=== PATIENT | male | born 1980 | race Caucasian/White ===

== ENCOUNTER 2017-12-29 09:12 | Inpatient (IN) | payer MEDICAID ==
[~2017-12-29] VITALS: Ht 170.2 cm; Wt 101.6 kg
[2017-12-29 09:19] VITALS: Ht 170.2 cm; Wt 101.6 kg
[2017-12-29 10:22] LABS: BASOPHIL % 0.6 % (0-2); PLATELET COUNT 246 x10^3mcL (130-400); RED CELL DISTRIBUTION WIDTH 13.8 % (11.5-14.5)
[2017-12-29 10:28] LABS: CALCIUM 9.2 mg/dL (8.5-10.1); CHLORIDE SERUM 103 mmol/L (98-107); CREATININE SERUM 0.8 mg/dL (0.7-1.3); GFR1 > 60 mL/min; GLUCOSE SERUM 105 mg/dL (74-106); POTASSIUM SERUM 3.5 mmol/L (3.5-5.1); SODIUM SERUM 142 mmol/L (136-145)
[2017-12-29 10:33] LABS: ALBUMIN 4.3 g/dL (3.4-5.0); ALKALINE PHOSPHATASE 111 U/L (46-116); ALT/SGPT 264 U/L (16-63); AST/SGOT 277 U/L (15-37)
[2017-12-29 10:39] LABS: TOTAL PROTEIN, SERUM 8.9 g/dL (6.4-8.2)
[2017-12-29] MEDS ORDERED: GOOD NEIGHBOR P20 M2 PO (11:05)
[2017-12-29 12:18] VITALS: BP 140/82
[2017-12-29 13:29] LABS: MAGNESIUM 1.6 mg/dL (1.8-2.4)
[2017-12-29 13:34] LABS: T3 TOTAL 1.25 ng/mL
[2017-12-29 13:35] LABS: CHOLESTEROL/HDL RATIO 3.9
[2017-12-29 13:39] LABS: FREE T4 0.94 ng/dL (0.76-1.46); FREE THYROXINE INDEX 2.7 ug/dL (1.4-4.5); T4(THYROXINE) 7.4 ug/dL (4.7-13.3)
[2017-12-29 15:21] LABS: UA SPECIFIC GRAVITY >=1.030 (1.005-1.035); microscopic required? YES; urine erythrocyte NEGATIVE (NEGATIVE)
[2017-12-29 15:28] LABS: AMPHETAMINE QUAL UR NONE DETECTED (NEG <=1000)
[2017-12-29 16:44] VITALS: BP 146/82
[2017-12-29 21:11] VITALS: BP 132/83
[2017-12-30 05:24] VITALS: BP 136/84
[2017-12-30 06:34] LABS: CARBON DIOXIDE 27.4 mmol/L (21-32); CHLORIDE SERUM 100 mmol/L (98-107); CREATININE SERUM 0.8 mg/dL (0.7-1.3); GFR1 > 60 mL/min; GLUCOSE SERUM 98 mg/dL (74-106); MAGNESIUM 1.7 mg/dL (1.8-2.4); PHOSPHOROUS 2.6 mg/dL (2.5-4.9); POTASSIUM SERUM 3.3 mmol/L (3.5-5.1); SODIUM SERUM 137 mmol/L (136-145)
[2017-12-30 06:41] LABS: BASOPHIL % 0.5 % (0-2); PLATELET COUNT 224 x10^3mcL (130-400); RED CELL DISTRIBUTION WIDTH 13.1 % (11.5-14.5)
[2017-12-30] MEDS ORDERED: LIPI10 PO (07:40)
[2017-12-30 09:57] VITALS: BP 141/91
== END 2017-12-30 10:40 | disposition home or self-care (01) | DRG 243 ==
LOC: ED 09:12 → DU 11:09
PROVIDERS: Emergency Medicine; Family Medicine
DX: K21.9 Gastro-esophageal reflux disease without esophagitis (principal); E83.42 Hypomagnesemia; K76.0 Fatty (change of) liver, not elsewhere classified; E83.39 Other disorders of phosphorus metabolism; K29.70 Gastritis, unspecified, without bleeding; E78.5 Hyperlipidemia, unspecified; R74.0 Nonspecific elevation of levels of transaminase and lactic acid dehydrogenase [LDH]; E66.9 Obesity, unspecified; F10.20 Alcohol dependence, uncomplicated; Z68.35 Body mass index [BMI] 35.0-35.9, adult
CPT/HCPCS: 83880; 84439; J2405; J3010; J3490; J7030; Q0092

== ENCOUNTER 2019-01-11 07:49 | Emergency (ER) | payer MEDICAID ==
[~2019-01-11] VITALS: Ht 170.2 cm; Wt 97.5 kg
[~2019-01-11 07:49] MED LIST: GOOD NEIGHBOR P20 M2 PO; LIPI10 PO
[2019-01-11 07:54] VITALS: Ht 170.2 cm; Wt 97.5 kg
[2019-01-11 08:21] LABS: BASOPHIL % 0.8 % (0-2); PLATELET COUNT 226 x10^3mcL (130-400); RED CELL DISTRIBUTION WIDTH 13.2 % (11.5-14.5)
[2019-01-11 08:39] LABS: CALCIUM 9.4 mg/dL (8.5-10.1); CARBON DIOXIDE 29.8 mmol/L (21-32); CHLORIDE SERUM 100 mmol/L (98-107); CREATININE SERUM 0.9 mg/dL (0.7-1.3); GFR1 > 60 mL/min; GLUCOSE SERUM 108 mg/dL (74-106); SODIUM SERUM 140 mmol/L (136-145)
[2019-01-11 08:43] LABS: ALBUMIN 3.8 g/dL (3.4-5.0); ALKALINE PHOSPHATASE 128 U/L (46-116); ALT/SGPT 158 U/L (16-63); AST/SGOT 346 U/L (15-37); BILIRUBIN TOTAL 1.31 mg/dL (0.20-1.00); LIPASE 169 IU/L (73-393); TOTAL PROTEIN, SERUM 8.2 g/dL (6.4-8.2)
[2019-01-11 09:06] LABS: AMPHETAMINE QUAL UR NONE DETECTED (See below)
[2019-01-11 11:20] VITALS: BP 133/70
== END 2019-01-11 11:20 | disposition home or self-care (01) ==
LOC: ED 07:49
PROVIDERS: Emergency Medicine
DX: K21.9 Gastro-esophageal reflux disease without esophagitis (principal); R07.89 Other chest pain; F10.20 Alcohol dependence, uncomplicated
CPT/HCPCS: G0480; J2405; J3490; J7030

== ENCOUNTER 2019-04-22 12:12 | Emergency (ER) | payer MEDICAID ==
[~2019-04-22] VITALS: Ht 172.7 cm; Wt 97.5 kg
[2019-04-22 14:14] VITALS: BP 131/87
== END 2019-04-22 14:14 | disposition home or self-care (01) ==
LOC: ED 12:12
DX: S05.01XA Injury of conjunctiva and corneal abrasion without foreign body, right eye, initial encounter (principal); K21.9 Gastro-esophageal reflux disease without esophagitis; W22.8XXA Striking against or struck by other objects, initial encounter; Y93.89 Activity, other specified; Y92.89 Other specified places as the place of occurrence of the external cause; Y99.0 Civilian activity done for income or pay
CPT/HCPCS: 90715

== ENCOUNTER 2019-07-19 10:47 | Emergency (ER) | payer MEDICAID ==
[~2019-07-19] VITALS: Ht 167.6 cm; Wt 89.5 kg
[2019-07-19 11:02] VITALS: Ht 167.6 cm; Wt 89.5 kg
[2019-07-19 12:33] LABS: BASOPHIL % 0.2 % (0-2); PLATELET COUNT 145 x10^3mcL (130-400); RED CELL DISTRIBUTION WIDTH 13.1 % (11.5-14.5)
[2019-07-19 12:43] LABS: CALCIUM 8.7 mg/dL (8.5-10.1); CHLORIDE SERUM 100 mmol/L (98-107); CREATININE SERUM 0.8 mg/dL (0.7-1.3); GFR1 > 60 mL/min; GLUCOSE SERUM 113 mg/dL (74-106); POTASSIUM SERUM 3.4 mmol/L (3.5-5.1); SODIUM SERUM 140 mmol/L (136-145)
[2019-07-19 12:47] LABS: ALBUMIN 3.7 g/dL (3.4-5.0); ALKALINE PHOSPHATASE 233 U/L (46-116); ALT/SGPT 144 U/L (16-63); AST/SGOT 557 U/L (15-37); BILIRUBIN TOTAL 2.9 mg/dL (0.20-1.00); LIPASE 243 IU/L (73-393); MAGNESIUM 1.3 mg/dL (1.8-2.4)
[2019-07-19 13:07] LABS: TOTAL PROTEIN, SERUM 8.5 g/dL (6.4-8.2)
[2019-07-19 18:31] VITALS: BP 123/73
== END 2019-07-19 18:31 | disposition home or self-care (01) ==
LOC: ED 10:47
PROVIDERS: Emergency Medicine
DX: K80.50 Calculus of bile duct without cholangitis or cholecystitis without obstruction (principal); R74.0 Nonspecific elevation of levels of transaminase and lactic acid dehydrogenase [LDH]; F10.239 Alcohol dependence with withdrawal, unspecified; K21.9 Gastro-esophageal reflux disease without esophagitis
CPT/HCPCS: G0480; J2060; J2405; J7030; Q0092

== ENCOUNTER 2019-12-05 08:57 | Inpatient (IN) | payer MEDICAID ==
[~2019-12-05] VITALS: Ht 162.6 cm; Wt 94.9 kg
[2019-12-05 08:59] VITALS: Ht 162.6 cm; Wt 94.9 kg
[2019-12-05 09:29] LABS: BASOPHIL % 1.6 % (0-2); PLATELET COUNT 179 x10^3mcL (130-400); RED CELL DISTRIBUTION WIDTH 15.6 % (11.5-14.5)
[2019-12-05 09:32] LABS: CALCIUM 9.3 mg/dL (8.5-10.1); CARBON DIOXIDE 29.1 mmol/L (21-32); CHLORIDE SERUM 99 mmol/L (98-107); CREATININE SERUM 0.9 mg/dL (0.7-1.3); GFR1 > 60 mL/min; GLUCOSE SERUM 120 mg/dL (74-106); POTASSIUM SERUM 3.3 mmol/L (3.5-5.1); SODIUM SERUM 137 mmol/L (136-145)
[2019-12-05 09:42] LABS: ALBUMIN 3.4 g/dL (3.4-5.0); ALKALINE PHOSPHATASE 216 U/L (46-116); ALT/SGPT 66 U/L (16-63); AST/SGOT 236 U/L (15-37); BILIRUBIN TOTAL 6.84 mg/dL (0.20-1.00)
[2019-12-05 09:46] LABS: TOTAL PROTEIN, SERUM 8.7 g/dL (6.4-8.2)
[2019-12-05 09:46] LABS: UA SPECIFIC GRAVITY 1.025 (1.005-1.035); microscopic required? YES; urine erythrocyte NEGATIVE (NEGATIVE)
--- NOTE | 2019-12-05 09:46 | NUR ---
PT COMES TO ER WITH C/O CHEST PAIN/DIZZINES ASSOCIATED WITH NAUSEA/VOMITING SINCE YESTERDAY. REPORTS HIS CHEST PAIN HAS BEEN DAILY FOR THE LAST 7 YEARS. PT ADMITS TO BEING AN ALCOHOLIC WITH DAILY DRINKING FORMANY YEARS. REPORTS GENERAL MALAISE, NAUSEA, VOMITING X 3 YESTERDAY-WHITE/YELLOW FLUIDS AND RT UPPER QUAD PAIN. SCLERA IS YELLOW IN COLOR AND URINE COLLECTED WAS TEA COLORED. DENIES DYSURIA, FEVERS/CHILLS. RESP EVEN AND UNLABORED,IN NAD. IV EUGENIO ESTABLISHED, IV FLUIDS STARTED.
--- NOTE | 2019-12-05 11:13 | NUR ---
NO ACUTE CHNAGES IN CONDITION. IV FLUIDS INFUSED WELL, WAIITNG FOR LAB TESTS RESULTS.
--- NOTE | 2019-12-05 11:44 | NUR ---
PT REPORTS INCREASED DIZZINESS, INFORMED TO CALL NURSE FOR ASSISTANCE, VSS. CALL LIGHT WITHIN REACH.
[2019-12-05 12:55] LABS: MAGNESIUM 2.1 mg/dL (1.8-2.4); PHOSPHOROUS 2.9 mg/dL (2.5-4.9)
[2019-12-05 12:56] LABS: CHOLESTEROL 301 mg/dL (<200); CHOLESTEROL/HDL RATIO 25.1; HDL CHOLESTEROL 12 mg/dL (40-60); TRIGLYCERIDES 408 mg/dL (<150)
--- NOTE | 2019-12-05 13:00 | NUR ---
REPORT CALLED TO PRIMARY RN, UPDATED ON STATUS,ALBS AND VITALS. PT STABLE FOR TRANSFER. VSS, ALL BELONGINGS WITH PT.
--- NOTE | 2019-12-05 13:30 | NUR ---
RECEIVED PT WITH CC ABDOMINAL PAIN RADIATING TO LEFT CHEST AND VOMITING X4. PT WITH HX OF ETOH, STATED HE USUALLY DRINKS 4 CANS OF MODELO DAILY, RECENTLY QUIT AROUND NOVEMBER 29, 2019. PT IS AAOX4. ICTERIC SCLERA NOTED TO BILATERAL EYES, PT STATED IT STARTED 3 DAYS AGO. RESP EVEN AND UNLABORED ON RA. DENIES CP OR PRESSURE. DENIES N/V AT THIS TIME. BOWEL SOUNDS ACTIVE, ABD SOFT, ROUND. LAST BM 12/05/18, FORMED. VOIDING FREELY. IV TO RAC, NO REDNESS OR SWELLING NOTED. AMBULATORY. ORIENTED TO ROOM AND SURROUNDINGS. BED IN LOW POSITION, CALL LIGHT WITHIN REACH. ENDORSED CARE TO PRIMARY RN FREEMAN.
[2019-12-05 13:39] VITALS: BP 130/75
--- NOTE | 2019-12-05 15:01 | NUR ---
PT TAKEN DOWN FOR CT VIA WHEELCHAIR. PT IS S/L.
[2019-12-05 15:19] VITALS: BP 126/77
--- NOTE | 2019-12-05 18:34 | NUR ---
PT IS LAYING DOWN IN BED WITH HOB UP WATCHING TV. PT LOOKS TO BE IN NO ACUTE DISTRESS AT THIS TIME AND DENIES ANY PAIN. RESPIRATIONS EVEN AND UNLABORED ON ROOM AIR. IV SITE PATENT WITH NO SIGNS OF ERYTHEMA OR SWELLING WITH IV FLUIDS INFUSING. JAUNDICE NOTED TO B/L SCLERA. CALL LIGHT WITHIN REACH, BED IN LOWEST POSITION, WILL ENDORSE TO ONCOMING SHIFT.
[2019-12-05 19:22] VITALS: BP 120/79
--- NOTE | 2019-12-05 19:38 | NUR ---
AWAKE AND ALERT, WATCHING TV. BREATHING EVEN AND UNLABORED ON ROOM AIR. SINUS RHYTHM ON TELE. IVF OF NS INFUSING WELL AT 100ML/HR. CALL LIGHT WITHIN EASY REACH.
--- NOTE | 2019-12-05 22:38 | NUR ---
EYES CLOSED, BREATHING EVEN AND UNLABORED. SIDE RAILS PADDED, CALL LIGHT WITHIN EASY REACH.
--- NOTE | 2019-12-06 01:50 | NUR ---
EYES CLOSED, BREATHING EVEN AND UNLABORED. CALL LIGHT WITHIN EASY REACH.
[2019-12-06 05:52] VITALS: BP 120/78
--- NOTE | 2019-12-06 06:14 | NUR ---
AWAKE AND ALERT, STATED DID NOT PASS ANY STOOL DURING SHIFT. BREATHING EVEN AND UNLABORED ON ROOM AIR. DENIES HAVING NAUSEA.
[2019-12-06 07:03] LABS: BASOPHIL % 0.1 % (0-2); PLATELET COUNT 172 x10^3mcL (130-400)
[2019-12-06 07:05] LABS: RED CELL DISTRIBUTION WIDTH 15.5 % (11.5-14.5)
--- NOTE | 2019-12-06 07:05 | NUR ---
EYES CLOSED, BREATHING EVEN AND UNLABORED ON ROOM AIR. CALL LIGHT WITHIN EASY REACH. ENDORSED TO NURSE RUBA
--- NOTE | 2019-12-06 07:15 | NUR ---
REPORT TAKEN [facility] [employer] REPRESENTATIVE NURSE AT THE BEDSIDE, PATIENT RESTING AT THIS TIME WITH EYES CLOSED, CHEST RISE AND FALL OBSERVED, NO DISTRESS OBSERVED, WILL CONTINUE TO MONITOR.
[2019-12-06 07:24] LABS: CALCIUM 8.8 mg/dL (8.5-10.1); CARBON DIOXIDE 26.7 mmol/L (21-32); CHLORIDE SERUM 101 mmol/L (98-107); CREATININE SERUM 0.7 mg/dL (0.7-1.3); GFR1 > 60 mL/min; GLUCOSE SERUM 94 mg/dL (74-106); LIPASE 239 IU/L (73-393); POTASSIUM SERUM 3.5 mmol/L (3.5-5.1); SODIUM SERUM 134 mmol/L (136-145)
[2019-12-06 07:50] VITALS: BP 137/86
[2019-12-06 12:00] VITALS: BP 108/66
--- NOTE | 2019-12-06 13:00 | NUR ---
Discount pharmacy card and list to low cost medical clinics given to patient by Lenard Stallworth.
[2019-12-06 16:24] VITALS: BP 118/78
--- NOTE | 2019-12-06 19:10 | NUR ---
REPORT RECEIVED FROM DAY SHIFT RN. PATIENT WAS SEEN RESTING COMFORTABLY IN BED. NO DISTRESS NOTED. BREATHING EVEN AND UNLABORED ON ROOM AIR. SEIZURE PRECAUTIONS IN PLACE. DENIES CHEST PAIN/PRESSURE. NO C/O PAIN. IV TO THE RAC. INFUSING WELL. PATENT AND INTACT. NO REDNESS OR SWELLING NOTED. COMFORT AND SAFETY MEASURES IN PLACE. BED IS LOCKED AND IN THE LOWEST POSITION. SIDE RAILS UP X2. CALL LIGHT IS WITHIN REACH. WILL CONTINUE TO MONITOR.
--- NOTE | 2019-12-06 19:24 | NUR ---
REPORT GIVEN TO RADIOGRAPHER NURSE, CARE ENDORSED
[2019-12-06 20:57] VITALS: BP 109/71
--- NOTE | 2019-12-07 02:05 | NUR ---
RESTING IN BED WITH EYES CLOSED. NO DISTRESS NOTED. BREATHING EVEN AND UNLABORED ON ROOM AIR. NO SOB NOTED. NO S/S OF PAIN NOTED. SAFETY MEASURES IN PLACE. SEIZURE PRECAUTIONS IN PLACE. CALL LIGHT IS WITHIN REACH. WILL CONTINUE TO MONITOR.
[2019-12-07 05:40] VITALS: BP 110/70
[2019-12-07 07:29] LABS: BASOPHIL % 0.4 % (0-2); PLATELET COUNT 189 x10^3mcL (130-400); RED CELL DISTRIBUTION WIDTH 15.5 % (11.5-14.5)
--- NOTE | 2019-12-07 07:30 | NUR ---
PATIENT IS A&OX4, FOLLOWS COMMANDS AND COOPERATES WELL. TELE #7, NSR, PERIPHERAL PULSES PALPABLE W/ NO SIGNS OF EDEMA. LUNG SOUDNS CTA BILATERALLY, ON RA, O2 SAT 98%. NORMAOCTIVE BSX4, ABD SOFT AND FLAT. VOIDS WELL. AMBUALTORY. SKIN IS INTACT. DENIES ANY PAIN OR DISCOMFORT AT THIS TIME. EYES ARE ICTERIC. IV SITE IS CDI. WILL CONTINUE TO MONITOR.
[2019-12-07 07:56] LABS: CALCIUM 8.6 mg/dL (8.5-10.1); CARBON DIOXIDE 24.9 mmol/L (21-32); CHLORIDE SERUM 102 mmol/L (98-107); CREATININE SERUM 0.7 mg/dL (0.7-1.3); GFR1 > 60 mL/min; GLUCOSE SERUM 85 mg/dL (74-106); POTASSIUM SERUM 3.6 mmol/L (3.5-5.1); SODIUM SERUM 135 mmol/L (136-145)
[2019-12-07 08:35] VITALS: BP 119/72
[2019-12-07 08:49] LABS: BILIRUBIN DIRECT 3.5 mg/dL (0.0-0.2); BILIRUBIN TOTAL 4.1 mg/dL (0.20-1.00); TOTAL PROTEIN, SERUM 7.5 g/dL (6.4-8.2)
[2019-12-07 08:52] LABS: ALBUMIN 2.7 g/dL (3.4-5.0)
[2019-12-07 12:21] VITALS: BP 108/64
[2019-12-07 13:26] VITALS: BP 110/70
--- NOTE | 2019-12-07 13:49 | NUR ---
PATIENT HAS RECEIVED DISCAHRGE INSTRUCTIONS. PATIENT VVERBALIZES UNDERSTANDING OF INSTRUCTIONS. PATIENT DENIES ANY DISCOMFORT OR PAIN AT THIS TIME. ALL QUESTIONSA ND CONCERNS HAVE BEEN ADDRESSED. PATIENT PLANS TO BE PICKED UP BY COWORKER UPON DISCHARGE. IV CATHETER HAS BEEN DC. CATHETER IS INTACT. TELE HAS BEEN DC AND RETURNED TO STATION. WILL CONTINUE TO MONITOR BEFORE PATIENT'S COWORKER ARRIVES.
== END 2019-12-07 15:22 | disposition home or self-care (01) | DRG 282 ==
LOC: ED 08:57 → DU 11:52
PROVIDERS: Emergency Medicine; ADMIT Family Medicine
DX: K85.90 Acute pancreatitis without necrosis or infection, unspecified (principal); E66.01 Morbid (severe) obesity due to excess calories; N39.0 Urinary tract infection, site not specified; E87.6 Hypokalemia; R74.0 Nonspecific elevation of levels of transaminase and lactic acid dehydrogenase [LDH]; E78.5 Hyperlipidemia, unspecified; K21.9 Gastro-esophageal reflux disease without esophagitis; Z68.35 Body mass index [BMI] 35.0-35.9, adult
CPT/HCPCS: 90658; G0378; J0694; J0696; J7030

== ENCOUNTER 2020-02-07 06:09 | Inpatient (IN) | payer MEDICAID ==
[~2020-02-07] VITALS: Ht 167.6 cm; Wt 91.8 kg
[2020-02-07 06:16] VITALS: Ht 167.6 cm; Wt 91.8 kg
[2020-02-07 06:46] LABS: BASOPHIL % 0.2 % (0-2); RED CELL DISTRIBUTION WIDTH 13.4 % (11.5-14.5)
[2020-02-07 06:49] LABS: PLATELET COUNT 79 x10^3mcL (130-400)
[2020-02-07 07:06] LABS: CALCIUM 8.7 mg/dL (8.5-10.1); CHLORIDE SERUM 99 mmol/L (98-107); CREATININE SERUM 0.8 mg/dL (0.7-1.3); GFR1 > 60 mL/min; GLUCOSE SERUM 104 mg/dL (74-106); POTASSIUM SERUM 3.2 mmol/L (3.5-5.1); SODIUM SERUM 137 mmol/L (136-145)
[2020-02-07 07:11] LABS: ALKALINE PHOSPHATASE 187 U/L (46-116); ALT/SGPT 103 U/L (16-63); AST/SGOT 611 U/L (15-37); BILIRUBIN TOTAL 1.41 mg/dL (0.20-1.00); LIPASE 190 IU/L (73-393)
[2020-02-07 07:13] LABS: ALBUMIN 3.2 g/dL (3.4-5.0); TOTAL PROTEIN, SERUM 8.8 g/dL (6.4-8.2)
[2020-02-07 07:40] LABS: UA SPECIFIC GRAVITY 1.025 (1.005-1.035); microscopic required? YES; urine erythrocyte TRACE (NEGATIVE)
[2020-02-07 09:56] VITALS: BP 127/77
[2020-02-07 13:07] VITALS: BP 127/77
[2020-02-07 15:57] VITALS: BP 138/80
[2020-02-07 20:39] VITALS: BP 119/60
[2020-02-08 05:14] VITALS: BP 117/68
[2020-02-08 06:34] LABS: BASOPHIL % 0.5 % (0-2); RED CELL DISTRIBUTION WIDTH 13.6 % (11.5-14.5)
[2020-02-08 06:47] LABS: PLATELET COUNT 83 x10^3mcL (130-400)
[2020-02-08 06:56] LABS: CALCIUM 8.3 mg/dL (8.5-10.1); CARBON DIOXIDE 28.8 mmol/L (21-32); CHLORIDE SERUM 101 mmol/L (98-107); CREATININE SERUM 0.8 mg/dL (0.7-1.3); GFR1 > 60 mL/min; GLUCOSE SERUM 93 mg/dL (74-106); SODIUM SERUM 138 mmol/L (136-145)
[2020-02-08 07:37] LABS: POTASSIUM SERUM 2.9 mmol/L (3.5-5.1)
[2020-02-08 07:42] VITALS: BP 119/68
[2020-02-08 11:44] VITALS: BP 118/72
[2020-02-08 15:11] VITALS: BP 114/71
[2020-02-08 19:28] VITALS: BP 113/78
[2020-02-09 06:07] VITALS: BP 107/73
[2020-02-09 06:24] LABS: BASOPHIL % 0.2 % (0-2); RED CELL DISTRIBUTION WIDTH 14.1 % (11.5-14.5)
[2020-02-09 06:36] LABS: PLATELET COUNT 108 x10^3mcL (130-400)
[2020-02-09 06:55] LABS: CALCIUM 8.5 mg/dL (8.5-10.1); CARBON DIOXIDE 26.4 mmol/L (21-32); CHLORIDE SERUM 104 mmol/L (98-107); CREATININE SERUM 0.8 mg/dL (0.7-1.3); GFR1 > 60 mL/min; GLUCOSE SERUM 103 mg/dL (74-106); POTASSIUM SERUM 3.2 mmol/L (3.5-5.1); SODIUM SERUM 140 mmol/L (136-145)
[2020-02-09 07:31] VITALS: BP 125/73
[2020-02-09] MEDS ORDERED: MUCINEX600 MG PO (10:12)
[2020-02-09] MEDS ORDERED: LEVOFLOXACIN500 M1 PO (10:12)
[2020-02-09 11:15] VITALS: BP 117/76
[2020-02-09 11:52] LABS: BILIRUBIN DIRECT 1.56 mg/dL (0.0-0.2); BILIRUBIN TOTAL 2.1 mg/dL (0.20-1.00); TOTAL PROTEIN, SERUM 7.6 g/dL (6.4-8.2)
[2020-02-09 11:56] LABS: ALBUMIN 2.7 g/dL (3.4-5.0)
[2020-02-09 13:05] VITALS: BP 117/76
[2020-02-09 15:12] VITALS: BP 111/72
[2020-02-09 20:02] VITALS: BP 115/78
[2020-02-10 04:45] VITALS: BP 105/65
[2020-02-10 08:48] VITALS: BP 115/68
[2020-02-10 12:00] VITALS: BP 129/95
== END 2020-02-10 13:41 | disposition home or self-care (01) | DRG 137 ==
LOC: ED 06:09 → DU 08:43 → MU 02-08 17:38
PROVIDERS: Emergency Medicine; Internal Medicine Gastroenterology; ADMIT Family Medicine
DX: J69.0 Pneumonitis due to inhalation of food and vomit (principal); E44.0 Moderate protein-calorie malnutrition; M62.82 Rhabdomyolysis; N39.0 Urinary tract infection, site not specified; E78.5 Hyperlipidemia, unspecified; K21.9 Gastro-esophageal reflux disease without esophagitis; F10.20 Alcohol dependence, uncomplicated; Y90.0 Blood alcohol level of less than 20 mg/100 ml; Z68.32 Body mass index [BMI] 32.0-32.9, adult
CPT/HCPCS: 87804; 90658; C9113; G0378; G0480; J0456; J0696; J2060; J2543; J3480; J3490; J7030; J7050; J7060; Q0092